=== PATIENT | male | born 1980 | race Caucasian/White ===

== ENCOUNTER 2021-01-08 18:40 | Emergency (ER) | payer SELFPAY ==
[~2021-01-08] VITALS: Ht 185.4 cm; Wt 70.3 kg
[~2021-01-08 18:40] MED LIST: FLAGYL500 MG PO; ZITHROMAX250 MG PO
[2021-01-08] MEDS ORDERED: HYDROCODONE-AC1 EAC1 PO (19:16)
[2021-01-08] MEDS ORDERED: IBUPROFEN600 MG PO (19:16)
[2021-01-15] MEDS ORDERED: HYDROCODONE-AC1 EAC1 PO (11:57)
== END 2021-01-08 21:04 | disposition home or self-care (01) ==
LOC: ED 18:40
DX: S82.52XA Displaced fracture of medial malleolus of left tibia, initial encounter for closed fracture (principal); F17.200 Nicotine dependence, unspecified, uncomplicated; Z88.0 Allergy status to penicillin; Z79.899 Other long term (current) drug therapy; X50.1XXA Overexertion from prolonged static or awkward postures, initial encounter; Y93.89 Activity, other specified; Y92.89 Other specified places as the place of occurrence of the external cause; Y99.8 Other external cause status

== ENCOUNTER → 2021-01-11 | Outpatient (CLI) | payer SELFPAY ==
[~2021-01-11] MED LIST changes: +HYDROCODONE-AC1 EAC1 PO; +IBUPROFEN600 MG PO
== END | disposition home or self-care (01) ==
LOC: COVID19 10:36
DX: Z01.818 Encounter for other preprocedural examination (principal); Z20.822 Contact with and (suspected) exposure to COVID-19

== ENCOUNTER → 2021-01-11 | Outpatient (CLI) | payer SELFPAY | END | disposition home or self-care (01) | LOC: RAD 09:22 | PROVIDERS: ATTEND Orthopaedic Surgery | DX: S82.52XA Displaced fracture of medial malleolus of left tibia, initial encounter for closed fracture (principal); X58.XXXA Exposure to other specified factors, initial encounter; Y93.89 Activity, other specified; Y92.89 Other specified places as the place of occurrence of the external cause; Y99.8 Other external cause status ==

== ENCOUNTER → 2021-01-15 | Day surgery (SDC) | payer SELFPAY ==
[2021-01-14 15:20] VITALS: BP 116/77
[~2021-01-15] VITALS: Ht 187.9 cm; Wt 68.0 kg
[2021-01-15 08:30] VITALS: BP 102/60
[2021-01-15 11:25] VITALS: BP 121/65
[2021-01-15 11:40] VITALS: BP 119/68
[2021-01-15 11:55] VITALS: BP 107/56
[2021-01-15 12:10] VITALS: BP 107/63
[2021-01-15 12:25] VITALS: BP 114/62
== END ==
LOC: SDC 01-14 14:00
PROVIDERS: ATTEND Orthopaedic Surgery
DX: S82.52XA Displaced fracture of medial malleolus of left tibia, initial encounter for closed fracture (principal); F17.210 Nicotine dependence, cigarettes, uncomplicated; Z88.0 Allergy status to penicillin; X58.XXXA Exposure to other specified factors, initial encounter; Y93.89 Activity, other specified; Y92.89 Other specified places as the place of occurrence of the external cause; Y99.8 Other external cause status

== ENCOUNTER → 2021-01-28 | Outpatient (CLI) | payer SELFPAY | END | disposition home or self-care (01) | LOC: ORTHO 00:20 | PROVIDERS: ATTEND Orthopaedic Surgery | DX: S82.52XD Displaced fracture of medial malleolus of left tibia, subsequent encounter for closed fracture with routine healing (principal); X58.XXXD Exposure to other specified factors, subsequent encounter ==

== ENCOUNTER → 2021-02-25 | Outpatient (CLI) | payer SELFPAY | END | disposition home or self-care (01) | LOC: ORTHO 00:17 | PROVIDERS: ATTEND Orthopaedic Surgery | DX: S82.492A Other fracture of shaft of left fibula, initial encounter for closed fracture (principal); S82.52XD Displaced fracture of medial malleolus of left tibia, subsequent encounter for closed fracture with routine healing; X58.XXXA Exposure to other specified factors, initial encounter; Y93.89 Activity, other specified; Y92.89 Other specified places as the place of occurrence of the external cause; Y99.8 Other external cause status ==